=== PATIENT | male | born 1975 | race Caucasian/White ===

== ENCOUNTER → 2023-12-07 06:37 | Outpatient (REF) | payer BC, SELFPAY ==
[2023-12-07 07:44] LABS: ALT (SGPT) 31 U/L (0-50); AST (SGOT) 23 U/L (17-59); Albumin 4.2 g/dl (3.5-5.0); Alkaline Phosphatase 60 U/L (38-126); Blood Urea Nitrogen 26 mg/dl (9-20); Calcium 9.7 mg/dl (8.4-10.2); Carbon Dioxide 29 mmol/L (22-30); Chloride 104 mmol/L (98-107); Glucose 115 mg/dl (70-99); HDL Cholesterol 55 mg/dl; LDL Cholesterol, Calculated 79 mg/dl; Potassium 5.5 mmol/L (3.5-5.1); Sodium 139 mmol/L (135-145); Total Bilirubin 0.6 mg/dl (0.2-1.3); Total Cholesterol 145 mg/dl (50-199); Total Protein 6.8 g/dl (6.3-8.2); Triglyceride 57 mg/dl (10-149); Very Low Density Lipoprotein 11 mg/dl (0-30); eGFR > 60.00
[2023-12-08 17:03] LABS: IGF-1 Z Score Calculation 1.8; Insulin-like Growth Factor I 221 ng/mL (68-225)
== END ==
LOC: REG 06:37
PROVIDERS: ATTENDING PHYSICIAN Internal Medicine Endocrinology, Diabetes & Metabolism; FAMILY PHYSICIAN Family Medicine
DX: R73.03 Prediabetes (principal); E22.0 Acromegaly and pituitary gigantism
CPT/HCPCS: 36415; 80053; 80061; 83036; 84305

== ENCOUNTER → 2024-01-04 06:27 | Outpatient (REF) | payer BC, SELFPAY ==
[2024-01-04 07:46] LABS: ALT (SGPT) 28 U/L (0-50); AST (SGOT) 31 U/L (17-59); Albumin 4.2 g/dl (3.5-5.0); Alkaline Phosphatase 47 U/L (38-126); Blood Urea Nitrogen 23 mg/dl (9-20); Calcium 9.4 mg/dl (8.4-10.2); Carbon Dioxide 24 mmol/L (22-30); Chloride 103 mmol/L (98-107); Glucose 104 mg/dl (70-99); Potassium 5.2 mmol/L (3.5-5.1); Sodium 136 mmol/L (135-145); Total Bilirubin 0.8 mg/dl (0.2-1.3); Total Protein 6.8 g/dl (6.3-8.2); eGFR > 60.00
[2024-01-05 17:14] LABS: IGF-1 Z Score Calculation 2.1; Insulin-like Growth Factor I 243 ng/mL (68-225)
== END ==
LOC: REG 06:27
PROVIDERS: ATTENDING PHYSICIAN Internal Medicine Endocrinology, Diabetes & Metabolism
DX: E22.0 Acromegaly and pituitary gigantism (principal)
CPT/HCPCS: 36415; 80053; 84305

== ENCOUNTER → 2024-04-10 07:42 | Outpatient (REF) | payer BC, SELFPAY | LOC: PAVMRI 07:42 | PROVIDERS: ATTENDING PHYSICIAN Internal Medicine Endocrinology, Diabetes & Metabolism; FAMILY PHYSICIAN Family Medicine | DX: E22.0 Acromegaly and pituitary gigantism (principal) | CPT/HCPCS: 70030; 70553; A9575 ==

== ENCOUNTER → 2024-06-20 06:28 | Outpatient (REF) | payer BC, SELFPAY ==
[2024-06-20 07:40] LABS: ALT (SGPT) 61 U/L (0-50); AST (SGOT) 35 U/L (17-59); Albumin 4.3 g/dl (3.5-5.0); Alkaline Phosphatase 58 U/L (38-126); Blood Urea Nitrogen 27 mg/dl (9-20); Calcium 9.1 mg/dl (8.4-10.2); Carbon Dioxide 27 mmol/L (22-30); Chloride 103 mmol/L (98-107); Glucose 112 mg/dl (70-99); HDL Cholesterol 60 mg/dl; LDL Cholesterol, Calculated 97 mg/dl; Potassium 4.9 mmol/L (3.5-5.1); Sodium 138 mmol/L (135-145); Total Bilirubin 0.6 mg/dl (0.2-1.3); Total Cholesterol 177 mg/dl (50-199); Total Protein 6.8 g/dl (6.3-8.2); Triglyceride 104 mg/dl (10-149); Very Low Density Lipoprotein 20 mg/dl (0-30); eGFR > 60.00
[2024-06-20 08:21] LABS: Glycohemoglobin (HgbA1c) 5.9 % (4.0-5.6)
[2024-06-22 10:11] LABS: IGF-1 Z Score Calculation 1.4; Insulin-like Growth Factor I 198 ng/mL (67-225)
== END ==
LOC: REG 06:28
PROVIDERS: ATTENDING PHYSICIAN Internal Medicine Endocrinology, Diabetes & Metabolism; FAMILY PHYSICIAN Family Medicine
DX: E22.0 Acromegaly and pituitary gigantism (principal); R73.03 Prediabetes; I10 Essential (primary) hypertension
CPT/HCPCS: 36415; 80053; 80061; 83036; 84305

== ENCOUNTER → 2024-11-14 11:16 | Outpatient (REF) | payer BC, SELFPAY | LOC: DHSLP 11:16 | PROVIDERS: ATTENDING PHYSICIAN Internal Medicine Cardiovascular Disease; FAMILY PHYSICIAN Family Medicine | DX: G47.30 Sleep apnea, unspecified (principal); R06.83 Snoring | CPT/HCPCS: 95800 ==

== ENCOUNTER → 2024-12-09 12:46 | Outpatient (REF) | payer BC, SELFPAY | LOC: RCS 12:46 | PROVIDERS: ATTENDING PHYSICIAN Internal Medicine Cardiovascular Disease; FAMILY PHYSICIAN Family Medicine | DX: I48.91 Unspecified atrial fibrillation (principal) | CPT/HCPCS: 93306 ==

== ENCOUNTER → 2024-12-26 06:59 | Outpatient (REF) | payer BC, SELFPAY ==
[2024-12-26 08:56] LABS: ALT (SGPT) 36 U/L (0-50); AST (SGOT) 26 U/L (17-59); Albumin 4.3 g/dl (3.5-5.0); Alkaline Phosphatase 53 U/L (38-126); Blood Urea Nitrogen 25 mg/dl (9-20); Calcium 9.9 mg/dl (8.4-10.2); Carbon Dioxide 28 mmol/L (22-30); Chloride 109 mmol/L (98-107); Glucose 114 mg/dl (70-99); HDL Cholesterol 49 mg/dl; LDL Cholesterol, Calculated 103 mg/dl; Potassium 5.3 mmol/L (3.5-5.1); Sodium 142 mmol/L (135-145); Total Bilirubin 0.4 mg/dl (0.2-1.3); Total Cholesterol 168 mg/dl (50-199); Triglyceride 82 mg/dl (10-149); Very Low Density Lipoprotein 16 mg/dl (0-30); eGFR > 60.00
[2024-12-27 15:43] LABS: IGF-1 Z Score Calculation 1.3; Insulin-like Growth Factor I 194 ng/mL (67-225)
== END ==
LOC: REG 06:59
PROVIDERS: ATTENDING PHYSICIAN Internal Medicine Endocrinology, Diabetes & Metabolism; FAMILY PHYSICIAN Family Medicine
DX: E22.0 Acromegaly and pituitary gigantism (principal); R73.03 Prediabetes; I10 Essential (primary) hypertension
CPT/HCPCS: 36415; 80053; 80061; 83036; 84305

== ENCOUNTER 2025-01-22 10:51 | Day surgery (SDC) | payer BC, SELFPAY ==
[2025-01-08 07:52] VITALS: BMI 38.1
[2025-01-08 08:37] LABS: % Basophils 1.1 % (0-2); % Eosinophils 9.1 % (0-6); % Immature Granulocytes 0.4 % (0-0.5); % Lymphocytes 33.6 % (20.5-51.1); % Neutrophils 45.8 % (42.2-75.2); Absolute Basophils 0.1 10^3/uL (0-0.2); Absolute Eosinophils 0.5 10^3/uL (0-0.7); Absolute Lymphocytes 1.9 10^3/uL (1.2-3.4); Absolute Monocytes 0.6 10^3/uL (0.1-0.6); Absolute Neutrophils 2.5 10^3/uL (1.4-6.5); Hemoglobin 14.1 g/dL (13.0-18.0); Mean Corp Hgb Conc. 33.6 g/dL (33.0-37.0); Mean Corpuscular Hgb 29.4 pg (27.0-31.0); Mean Corpuscular Volume 87.5 fL (80.0-94.0); Mean Platelet Volume 11.5 fL (7.4-10.4); Nucleated Red Blood Cells % 0 % (-); Platelet Count 208 10^3/uL (130-400); Red Cell Dist. Width 12.9 % (11.5-14.5); White Blood Cell Count 5.5 10^3/uL (4.8-10.8)
[2025-01-08 08:49] LABS: ALT (SGPT) 40 U/L (0-50); AST (SGOT) 28 U/L (17-59); Albumin 4.7 g/dl (3.5-5.0); Alkaline Phosphatase 59 U/L (38-126); Blood Urea Nitrogen 21 mg/dl (9-20); Calcium 9.4 mg/dl (8.4-10.2); Carbon Dioxide 26 mmol/L (22-30); Chloride 107 mmol/L (98-107); Estimated Creatinine Clearance > 125 ml/min; Glucose 121 mg/dl (70-99); INR 1.03; Magnesium 2.3 mg/dl (1.6-2.3); PT 14.1 Sec (11.4-14.6); Potassium 5.1 mmol/L (3.5-5.1); Sodium 142 mmol/L (135-145); Total Bilirubin 0.8 mg/dl (0.2-1.3); Total Protein 7.3 g/dl (6.3-8.2); eGFR > 60.00
--- NOTE | 2025-01-08 09:01 | HPS.HSE ---
Family Physician
-
Family Physician: Lg Kern
Chief Complaint
-
Paroxysmal atrial fibrillation.
History of Present Illness
The patient is a 49 year old male presenting today for paroxysmal atrial fibrillation. The patient reports a wide variety of symptoms associated with this diagnosis, which include shortness of breath, lightheadedness, palpitations, and
decreased exercise capacity. He is on no current pharmacological therapy for his arrhythmia due to significant bradycardia at baseline. He reports compliance with Xarelto for oral anticoagulation due to a CHADS-VASc of 2. His current symptoms
associated with his arrhythmia are greatly interfering with his activities of daily living and are overall impacting his quality of life. He is interested in pursuing with pulmonary vein isolation for further arrhythmia management. He denies any
current complaints today such as chest pain, shortness of breath at rest, nausea, vomiting, diarrhea, dizziness, cough, sore throat, or fever.
Medical History
Past Medical History
Past Medical History: Reports Other
Additional Past Medical History:
1. Paroxysmal atrial fibrillation, oral anticoagulation for Xarelto.
2. Sinus bradycardia.
3. Hypertension.
4. Non-insulin dependent diabetes, A1c 6.0 12/26/2024.
5. Fatty liver disease.
6. Acute pancreatitis 2014.
7. Complex migraines.
8. Vertigo.
9. Multinodular goiter.
10. Parathyroid adenoma, status post excision.
11. 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
12. Acromegaly.
13. Remote lyme disease.
14. Obesity, BMI 38.0.
Past Surgical History: Reports Other
Additional Past Surgical History:
1. Left carotid artery embolization.
2. Cholecystostomy.
3. Cholecystectomy.
4. Parathyroid adenoma excision.
5. Pituitary adenoma excision.
6. Right labrum repair.
7. Vasectomy.
8. Tonsillectomy.
9. Pinson teeth extraction.
10. Endoscopy.
Social History
Tobacco: Non-smoker
Alcohol: Occasional (2-3 times a week reported. )
Personal:
Living: Other (He lives in a 2 story home with his and adult children. )
Family History
Family History: Not pertinent
Allergies / Home Medications
Allergy/Medication List:
Home medications:
1. Lisinopril 20 mg p.o. daily.
2. Octreotide 50 mcg subcutaneous monthly.
3. Xarelto 20 mg p.o. daily.
Allergies: Latex. Bees.
Review of Systems
-
A 12 point ROS was completed and negative except as noted: Yes
Physical Exam
Vital Signs
Blood pressure 131/91. Heart rate 52. Respirations 18. Pulse ox 97% on room air.
Height 6 feet, 1 inch. Weight 130.8 kg. BMI 38.0.
Physical Exam
General: Well Developed, Well Nourished and No Apparent Distress
HEENT: NormoCephalic, Moist mucous membranes and Atraumatic
Respiratory: Clear
Cardiac: Bradycardia
GI: Soft, Non Tender and Non Distended
Musculoskeletal: No Edema and Normal Gait & Station
Skin: Warm and Dry
Neuro: AO x 3 and Nonfocal/grossly intact
Psych: Calm
Laboratory Results
-
01/08/25 08:18
01/08/25 08:18
Laboratory Results
PT 14.1 Sec (11.4-14.6) 01/08/25 08:18
INR 1.03 01/08/25 08:18
Total Bilirubin 0.8 mg/dl (0.2-1.3) 01/08/25 08:18
AST 28 U/L (17-59) 01/08/25 08:18
ALT 40 U/L (0-50) 01/08/25 08:18
Alkaline Phosphatase 59 U/L (38-126) 01/08/25 08:18
Type and screen AB negative.
EKG 01/08/2025: Sinus bradycardia.
Chest CT 01/08/2025: Ostial insertion of the right middle lobe pulmonary vein at the posterior inferior margin of the right superior pulmonary venous ostium. Single, individual left superior and inferior pulmonary veins. No left atrial filling
defect/thrombus is identified.
Echocardiogram 12/09/2024: Normal left ventricular size, wall thickness and systolic function. No regional wall motion abnormalities are seen. LV ejection fraction is 63% by Richmond's biplane method of discs. Normal diastolic function. Normal right
ventricular size and function. Normal atria. Systolic anterior motion of the mitral valve chordae. No mitral regurgitation is seen. Trace tricuspid regurgitation. Estimated pulmonary artery pressure of 21 mmHg, assuming a right atrial pressure of 3
mmHg. No prior study for comparison.
Impression/Plan
-
IMPRESSION/PLAN:
1. Paroxysmal atrial fibrillation: The patient is in need of pulmonary vein isolation with Dr. Faraz Dial on 01/22/2025. The benefits and risks of the procedure have been explained to the patient. The patient understands these risks and wishes to
proceed. The patient will not be required to undergo a pre-procedural transesophageal echocardiogram as he has been compliant with his home oral anticoagulation. He is aware to continue his Xarelto until the night prior to his procedure. He will
take no medications the morning of his ablation.
[2025-01-22] VITALS (13 sets, daily range): BP systolic 90–137; BP diastolic 48–87; BMI 40.6
--- NOTE | 2025-01-22 12:36 | ITS.CL.ABL ---
Integration Engineer - Ablation
Ablation
Procedure Report:
Primary Care: Dr Lg Kern
Procedure Date: 01/22/2025
Patient History:
Patient's pleasant 49-year-old male with a past medical significant for tertiary mobile with factor megaly, hypertension, diabetes mellitus type 2, and symptomatic paroxysmal atrial fibrillation.
See H&P for complete details.
Indication:
Symptomatic paroxysmal atrial fibrillation
Arrhythmia Specific History:
Prior Medical Therapies for Rate and Rhythm Control:
[ ] Beta-liv
[ ] Calcium channel-liv
[ ] Amiodarone
[ ] Dronederone
[ ] Sotalol
[ ] Flecainide
[ ] Dofetilide
X Options limited by bradycardia
[ ] Options limited by comorbid renal disease
Prior Procedural Therapies for AF/AFL:
[ ] Cardioversion
[ ] Pulmonary Vein Isolation
[ ] Posterior Wall Isolation
[ ] Additional lines (Specify)
[ ] Surgical Thomason-MAZE or PVI (Specify)
Procedure Performed:
X AF ablation procedure (71629) -- includes LA/CS pacing, trans-septal, 3D mapping, + ICE
[ ] +IV drug (69080)
[ ] +Other Arrhythmia (09958)
[ ] +Other AF Line/ablation (01863)
Risks and expected recovery has been explained in detail. Alternative options have been explored, and in a shared-decision making fashion we have decided that this was the most appropriate procedure.
Method
NPO status confirmed. Grounding pad applied. Defibrillator pads applied. Continuous surface ECG, pulse oximetry, and blood pressure were monitored. Procedure was performed under general anesthesia, with anesthesia services.
Both groins were clipped, prepped with Chloraprep, and draped in sterile fashion. Time out was called. Local anesthesia administered with bupivacaine. The right femoral vein was accessed for catheter placement, using ultrasound guidance (images
saved to record), micro-puncture needle/wire, and modified seldinger technique. 3 sheaths were placed. The following catheters were used:
[ ] Tacticath SE (D/F Curve) ablation catheter
X Viewflex 9Fr ICE catheter
X Inquiry decapolar 6Fr diagnostic catheter
[ ] CRD Hex 6Fr
[ ] Arctic Front Advance Cryoballoon ([ ]28mm[ ]23mm)
[ ] Achieve Advance mapping catheter ([ ]15mm[ ]20mm)
X FlexCath Contour 10 Fr with PulseSelect PFA Catheter
X Advisor HD Grid Mapping Catheter, SE
[ ] Acuson AcuNav 8 Fr ICE catheter
[ ]Other: [ ]
Intracardiac ultrasound (ICE) was carefully advanced into the right atrium to guide sheath placement over a J-wire, catheter placement, guide trans-septal puncture, identify potential complications, identify anatomic structures and ensure proper
contact between ablation catheter and tissue.
Heparin was given prior to trans-septal puncture. Heparin was given to achieve and maintain a target ACT of 300-400 seconds throughout the procedure.
Trans-septal access was performed under ICE guidance. The trans-septal puncture was performed with a SafeSept wire through a Brockenbrough needle assembly through the steerable sheath. The wire was visualized as it entered the LSPV and system
advanced under ICE guidance and fluoroscopy into the LA. The Brockenbrough needle assembly, SafeSept wire and sheath dilator were removed under negative pressure. LA pressure was measured and recorded.
ICE and 3D mapping was performed to identify relevant cardiac structures. A careful 3D map was created to assess for regions of low-voltage and abnormal electrogram signals using HD grid mapping catheter and PulseSelect catheter. Additional mapping
was performed as outlined below.
Prior to ablation, glycopyrrolate was provided. PulseSelect catheter was advanced over J-wire to the ostium of each vein. Pulmonary vein isolation was performed with ostial and antral lesions in a circumferential manner. Contact was visualized via
EAM, ICE, fluoroscopy, and EGM signals. Following completion of ablation lesions, a post-ablation voltage/activation map was performed in atrial pacing. Entrance and exit block were confirmed for each vein.
Catheter and sheath were removed from the left atrium and post-ablation intracardiac echo evaluation was consistent with pre-ablation with no changes and no pericardial effusion and there is no left atrial thrombus or left ventricle thrombus seen.
Electrophysiology study was performed. Hemostasis was obtained with Vascade for each sheath and with manual pressure. Protamine was used for reversal.
Estimated Blood Loss
5 mL
Complications
None
Fluoroscopy: 7.5 minutes; 30.61 mGy; DAP 5.34
LA Pressure: Pre 8 mmHg, post 10 mmHg
Baseline Intervals:
Rhythm: SR
NM: 172 ms
QRS: 99 ms
QT: 381 ms
QTc: 375 ms
A-A: 1033 ms
Post-Procedure Intervals:
NM: 171 ms
QRS: 91 ms
QT: 353 ms
QTc: 290 ms
A-A: 1486 ms
R-R: 1486 ms
AVWB: 430 ms
AVNERP: 600/390 ms
AERP: 600/250 ms
Recommendations
- Bedrest with straight-leg precautions as ordered
- Anticipate same day discharge if patient meeting clinical metrics
- Resume home medications as indicated
- Ok to resume anticoagulation tonight if patient and groin sites stable
- PPI daily for 30 days
- Plan for follow-up in office as scheduled
Faraz Dial, , FACC, RS
Clinical Cardiac [employer] Rep[employer]r
cc: Dr Lg Kern
[2025-01-22 14:09] LABS: ACT-LR - POC 253 Seconds (116-155)
[2025-01-22 14:25] LABS: ACT-LR - POC 239 Seconds (116-155)
[2025-01-22 14:30] LABS: ACT-LR - POC 242 Seconds (116-155)
[2025-01-22 14:40] LABS: ACT-LR - POC 239 Seconds (116-155)
[2025-01-22 15:25] LABS: ACT-LR - POC 199 Seconds (116-155)
[2025-01-22] MEDS: SUBLIMAZE 50 MCG IV (16:19)
--- NOTE | 2025-01-22 17:15 | W.PN.UPDATE ---
Update Note
Progress Note Update
49 yo WM s/p PVI (same day). He denies cp, sob, thalia clears, mod back pain from positioning, R fem c/d/i vascade, soft, EKG SR/SB. He will resume Xarelto tonight at 10pm. Activity restrictions reviewed. He will f/u Dr. Dial in 3 mo. He is for d/c
home after 630p if groin stable and voiding.
[2025-01-22] MEDS: TYLENOL 650 MG PO (17:34)
--- NOTE | 2025-01-22 17:44 | PTCARENOTE ---
Patient complains or white light in right eye. States he gets this as an aura prior to migraine. Tylenol given. Dr. Dial aware but currently in case. Neuro exam WNL. bp 90/52
[2025-01-22 17:52] LABS: Glucose - Point of Care 135 mg/dl (70-99)
--- NOTE | 2025-01-22 17:55 | PTCARENOTE ---
Dr. Dial at bedside. Patient feeling much better. Vision back to normal in Right eye. Patient up OOB to BR. No bleeding, no hematoma
== END 2025-01-22 18:28 | disposition home or self-care (01) ==
LOC: CATH 10:51
PROVIDERS: ATTENDING PHYSICIAN Internal Medicine Cardiovascular Disease; FAMILY PHYSICIAN Family Medicine
DX: I48.0 Paroxysmal atrial fibrillation (principal); I10 Essential (primary) hypertension; E11.9 Type 2 diabetes mellitus without complications; Z79.899 Other long term (current) drug therapy; K76.0 Fatty (change of) liver, not elsewhere classified; R00.1 Bradycardia, unspecified; G43.109 Migraine with aura, not intractable, without status migrainosus; R42 Dizziness and giddiness; E04.2 Nontoxic multinodular goiter; E66.9 Obesity, unspecified; Z68.38 Body mass index [BMI] 38.0-38.9, adult; Z86.19 Personal history of other infectious and parasitic diseases; E22.0 Acromegaly and pituitary gigantism; Z79.01 Long term (current) use of anticoagulants; Z91.030 Bee allergy status; Z90.89 Acquired absence of other organs; Z88.5 Allergy status to narcotic agent
CPT/HCPCS: C1730; C1894 ×2; C1769; C1732; C1733; C1766; 36415; 75572; 80053; 82962; 83735; 85025; 85347; 85610; 86850; 86900; 86901; 93005; 93656; C1760; Q9967